=== PATIENT | male | born 1985 | race Caucasian/White ===

== ENCOUNTER 2016-12-17 12:59 | Inpatient (IN) | payer OTHER ==
[2016-12-17 15:25] VITALS: BMI 39.6
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
[2016-12-17] MEDS ORDERED: MAGNESIUM HYDROX 2400MG/30ML ORAL SUSPENSION 30 ML CUP PO PRN (16:53)
[2016-12-17] MEDS ORDERED: ACETAMINOPHEN 325 MG TABLET (FP) PO PRN (16:53)
[2016-12-17] MEDS ORDERED: MAG HYDROX/AL HYDROX/SIMETH 30 ML UNIT-DOSE CUP PO PRN (16:53)
[2016-12-17] MEDS ORDERED: IBUPROFEN 400 MG TABLET (FP) PO PRN (16:53)
[2016-12-17] MEDS ORDERED: P-EPHED 60MG/TRIPROLIDI 2.5MG TABLET PO PRN (16:53)
[2016-12-17] MEDS ORDERED: MAGNESIUM CITRATE 300 ML BOTTLE PO PRN (16:53)
[2016-12-17] MEDS ORDERED: LOPERAMIDE HCL 2 MG CAPSULE PO PRN (16:53)
[2016-12-17] MEDS ORDERED: MENTHOL/PHENOL 1 EACH UD MM PRN (16:53)
[2016-12-17] MEDS ORDERED: NICOTINE POLACRILEX 2 MG GUM BUC PRN (16:53)
[2016-12-17] MEDS ORDERED: guaiFENesin/D-METHORPHAN HB 10 ML UNIT-DOSE CUPS PO PRN (16:53)
[2016-12-17] MEDS ORDERED: METHADONE HCL 10 MG TABLET (FOR DETOX USE ONLY) PO ONE ×2 (18:00→23:00)
[2016-12-17] MEDS: diazePAM 5 MG TABLET PO PRN ×2 (18:06→22:05)
[2016-12-17 21:49] LABS: URINE APPEARANCE CLEAR; URINE BILIRUBIN NEGATIVE (NEGATIVE); URINE BLOOD NEGATIVE (NEGATIVE); URINE COLOR STRAW; URINE GLUCOSE (UA) NEGATIVE (NEGATIVE); URINE KETONE NEGATIVE (NEGATIVE); URINE LEUK ESTERASE NEGATIVE (NEGATIVE); URINE NITRITE NEGATIVE (NEGATIVE); URINE PROTEIN NEGATIVE (NEGATIVE); URINE UROBILINOGEN NEGATIVE E.U./dl (0.2-1.0)
[2016-12-17] MEDS: CYCLOBENZAPRINE HCL 10 MG TABLET (FP) PO PRN (22:04)
[2016-12-17] MEDS: diphenhydrAMINE HCL 50 MG CAPSULE PO PRN (22:04)
[2016-12-17] MEDS: cloNIDine HCL 0.1 MG TABLET PO PRN (22:04)
[2016-12-17] MEDS: THIAMINE HCL 100 MG TABLET (FP) PO SCH (22:04)
[2016-12-17] MEDS: RANITIDINE HCL 150 MG TABLET (FP) PO SCH (22:46)
[2016-12-18] MEDS: diazePAM 5 MG TABLET PO PRN ×4 (08:29→22:03)
[2016-12-18 09:35] LABS: MCH 28.3 pg (25.7-33.7); MEAN CELL VOLUME 85.6 fl (80-96); MEAN PLT VOLUME 7.9 fl (7.5-11.1); PLATELET COUNT 314 K/MM3 (134-434); RDW 14.2 % (11.9-15.9); WHITE BLOOD COUNT 13.8 K/mm3 (4.0-10.0)
[2016-12-18 09:56] LABS: ALBUMIN 3.6 g/dl (3.4-5.0); ALK PHOS 70 U/L (45-117); ANION GAP 8 (8-16); BILIRUBIN,TOTAL 0.7 mg/dL (0.2-1.0); CALCIUM 9.2 mg/dL (8.5-10.1); CO2 29 mmol/L (21-32); CREATININE 0.8 mg/dL (0.7-1.3); GLUCOSE,RANDOM 94 mg/dL (74-106); SGOT/AST 15 U/L (15-37); SGPT/ALT 34 U/L (12-78); TOT PROT 7.2 g/dl (6.4-8.2)
[2016-12-18] MEDS ORDERED: METHADONE HCL 10 MG TABLET (FOR DETOX USE ONLY) PO ONE (10:00)
--- NOTE | 2016-12-18 10:38 | EKG ---
Test Reason : Blood Pressure : / mmHG Vent. Rate : 089 BPM Atrial Rate : 089 BPM P-R Int : 176 ms QRS Dur : 098 ms QT Int : 356 ms P-R-T Axes : 067 038 019 degrees QTc Int : 433 ms NORMAL SINUS RHYTHM POSSIBLE LEFT ATRIAL ENLARGEMENT BORDERLINE ECG NO PREVIOUS ECGS AVAILABLE Confirmed by PITA LOPEZ, KELLEY ([id number]) on 12/18/2016 10:37:59 AM Referred By: Confirmed By:KELLEY LEMA MD
[2016-12-18] MEDS: RANITIDINE HCL 150 MG TABLET (FP) PO SCH ×2 (10:55→22:03)
[2016-12-18] MEDS: CYCLOBENZAPRINE HCL 10 MG TABLET (FP) PO PRN ×2 (10:55→22:03)
[2016-12-18] MEDS: cloNIDine HCL 0.1 MG TABLET PO PRN (10:55)
[2016-12-18] MEDS: PRENATAL VITAMINS W/ FOLIC ACID TABLET (FP) PO SCH (10:55)
[2016-12-18] MEDS: NICOTINE 21 MG/24 HOURS TOPICAL PATCH TD SCH (13:04)
--- NOTE | 2016-12-18 13:08 | PN ---
S COWS - Scale Resting Pulse: 1= SC 81-100 Sweatin=Flushed/Facial Moisture Restless Observation: 1= Difficult to Sit Still Pupil Size: 0= Normal to Room Light Bone or Joint Aches: 2= Severe Diffuse Aches Runny Nose/ Eye Tearin= Runny Nose/Eyes GI Upset > 30mins: 1= Stomach Cramp Tremor Observation of Outstretched Hands: 2= Slight Tremor Visible Yawning Observation: 2= >3x During Session Anxiety or Irritability: 2=Irritable/Anxious Goose Flesh Skin: 3=Piloerection COWS Score: 18 S Progress Note (SOAP) Subjective: agitation anxiety sweats shakes interrupted sleep body aches Objective: 12/18/16 13:07 Vital Signs Temperature 98.1 F 12/18/16 10:08 Pulse Rate 82 12/18/16 10:08 Respiratory Rate 18 12/18/16 10:08 Blood Pressure 149/107 12/18/16 10:08 O2 Sat by Pulse Oximetry (%) Laboratory Tests 12/17/16 12/18/16 12/18/16 20:30 06:30 06:30 WBC 13.8 H RBC 4.87 Hgb 13.8 Hct 41.7 MCV 85.6 MCHC 33.0 RDW 14.2 Plt Count 314 MPV 7.9 Sodium 140 Potassium 4.1 Chloride 103 Carbon Dioxide 29 Anion Gap 8 BUN 16 Creatinine 0.8 Creat Clearance w eGFR > 60 Random Glucose 94 Calcium 9.2 Total Bilirubin 0.7 AST 15 ALT 34 Alkaline Phosphatase 70 Total Protein 7.2 Albumin 3.6 Urine Color Straw Urine Appearance Clear Urine pH 6.0 Ur Specific [place] 1.008 Urine Protein Negative Urine Glucose (UA) Negative Urine Ketones Negative Urine Blood Negative Urine Nitrite Negative Urine Bilirubin Negative Urine Urobilinogen Negative Ur Leukocyte Esterase Negative awake/alert ambulating no acute distress Assessment: 12/18/16 13:07 withdrawal sx Plan: continue detox increase fluids clonidine 0.1mg bid ordered
[2016-12-18] MEDS: cloNIDine HCL 0.1 MG TABLET PO SCH (22:03)
[2016-12-18] MEDS: THIAMINE HCL 100 MG TABLET (FP) PO SCH (22:03)
[2016-12-18] MEDS: diphenhydrAMINE HCL 50 MG CAPSULE PO PRN (22:03)
[2016-12-19] MEDS: diazePAM 5 MG TABLET PO PRN ×5 (06:23→23:33)
[2016-12-19] MEDS ORDERED: METHADONE HCL 5 MG TABLET (FOR DETOX USE ONLY) PO ONE (10:00)
[2016-12-19] MEDS: NICOTINE 21 MG/24 HOURS TOPICAL PATCH TD SCH (10:12)
[2016-12-19] MEDS: RANITIDINE HCL 150 MG TABLET (FP) PO SCH ×2 (10:13→22:12)
[2016-12-19] MEDS: cloNIDine HCL 0.1 MG TABLET PO SCH ×2 (10:13→23:33)
[2016-12-19] MEDS: PRENATAL VITAMINS W/ FOLIC ACID TABLET (FP) PO SCH (10:13)
[2016-12-19] MEDS: CYCLOBENZAPRINE HCL 10 MG TABLET (FP) PO PRN ×2 (10:13→23:33)
--- NOTE | 2016-12-19 11:25 | PN ---
S COWS - Scale Resting Pulse: 1= [place] 81-100 Sweatin=Flushed/Facial Moisture Restless Observation: 3= Extraneous Movement Pupil Size: 1= Pupils >than Normal Bone or Joint Aches: 2= Severe Diffuse Aches Runny Nose/ Eye Tearin= Runny Nose/Eyes GI Upset > 30mins: 2= Nausea/Diarrhea Tremor Observation of Outstretched Hands: 2= Slight Tremor Visible Yawning Observation: 2= >3x During Session Anxiety or Irritability: 2=Irritable/Anxious Goose Flesh Skin: 0=Smooth Skin COWS Score: 19 S Progress Note (SOAP) Subjective: ALERT,IRRITABLE,ANXIOUS,INTERRUPTED SLEEP,PAIN IN THE BODY AND BACK,TREMOR Objective: 12/19/16 11:23 Vital Signs Temperature 97.9 F 12/19/16 10:28 Pulse Rate 93 H 12/19/16 10:28 Respiratory Rate 20 12/19/16 10:28 Blood Pressure 132/92 12/19/16 10:28 O2 Sat by Pulse Oximetry (%) EKG NSR Laboratory Last Values WBC 13.8 K/mm3 (4.0-10.0) H 12/18/16 06:30 RBC 4.87 M/mm3 (4.00-5.60) 12/18/16 06:30 Hgb 13.8 GM/dL (11.7-16.9) 12/18/16 06:30 Hct 41.7 % (35.4-49) 12/18/16 06:30 MCV 85.6 fl (80-96) 12/18/16 06:30 MCHC 33.0 g/dl (32.0-35.9) 12/18/16 06:30 RDW 14.2 % (11.9-15.9) 12/18/16 06:30 Plt Count 314 K/MM3 (134-434) 12/18/16 06:30 MPV 7.9 fl (7.5-11.1) 12/18/16 06:30 Sodium 140 mmol/L (136-145) 12/18/16 06:30 Potassium 4.1 mmol/L (3.5-5.1) 12/18/16 06:30 Chloride 103 mmol/L (98-107) 12/18/16 06:30 Carbon Dioxide 29 mmol/L (21-32) 12/18/16 06:30 Anion Gap 8 (8-16) 12/18/16 06:30 BUN 16 mg/dL (7-18) 12/18/16 06:30 Creatinine 0.8 mg/dL (0.7-1.3) 12/18/16 06:30 Creat Clearance w eGFR > 60 (>60) 12/18/16 06:30 Random Glucose 94 mg/dL (74-106) 12/18/16 06:30 Calcium 9.2 mg/dL (8.5-10.1) 12/18/16 06:30 Total Bilirubin 0.7 mg/dL (0.2-1.0) 12/18/16 06:30 AST 15 U/L (15-37) 12/18/16 06:30 ALT 34 U/L (12-78) 12/18/16 06:30 Alkaline Phosphatase 70 U/L (45-117) 12/18/16 06:30 Total Protein 7.2 g/dl (6.4-8.2) 12/18/16 06:30 Albumin 3.6 g/dl (3.4-5.0) 12/18/16 06:30 Urine Color Straw 12/17/16 20:30 Urine Appearance Clear 12/17/16 20:30 Urine pH 6.0 (5.0-8.0) 12/17/16 20:30 Ur Specific [place] 1.008 (1.001-1.035) 12/17/16 20:30 Urine Protein Negative (NEGATIVE) 12/17/16 20:30 Urine Glucose (UA) Negative (NEGATIVE) 12/17/16 20:30 Urine Ketones Negative (NEGATIVE) 12/17/16 20:30 Urine Blood Negative (NEGATIVE) 12/17/16 20:30 Urine Nitrite Negative (NEGATIVE) 12/17/16 20:30 Urine Bilirubin Negative (NEGATIVE) 12/17/16 20:30 Urine Urobilinogen Negative E.U./dl (0.2-1.0) 12/17/16 20:30 Ur Leukocyte Esterase Negative (NEGATIVE) 12/17/16 20:30 RPR Titer Nonreactive (NONREACTIVE) 12/18/16 06:30 LABS PENDING Assessment: 12/19/16 11:24 WITHDRAWAL SYMPTOM Plan: CONTINUE DETOX,ENCOURAGE ORAL FLUID,REPEAT CBC IN AM
[2016-12-19] MEDS ORDERED: PNEUMOCOCCAL 23 VACCINE 0.5 ML VIAL IM ONE (12:00)
[2016-12-19] MEDS ORDERED: PNEUMOC 13-VAL CONJ-DIP CRM/PF 0.5 ML DISP.SYRIN IM ONE (12:00)
[2016-12-19] MEDS: THIAMINE HCL 100 MG TABLET (FP) PO SCH (22:12)
[2016-12-19] MEDS: diphenhydrAMINE HCL 50 MG CAPSULE PO PRN (23:39)
[2016-12-20] MEDS: diazePAM 5 MG TABLET PO PRN ×2 (08:35→14:39)
[2016-12-20] MEDS ORDERED: METHADONE HCL 5 MG TABLET (FOR DETOX USE ONLY) PO ONE (10:00)
--- NOTE | 2016-12-20 10:37 | PN ---
S Progress Note (SOAP) Subjective: ALERT,IRRITABLE,ANXIOUS,INTERRUPTED SLEEP,TREMOR Objective: 12/20/16 10:36 Vital Signs Temperature 97.9 F 12/20/16 09:38 Pulse Rate 117 H 12/20/16 09:38 Respiratory Rate 20 12/20/16 09:38 Blood Pressure 139/79 12/20/16 09:38 O2 Sat by Pulse Oximetry (%) Assessment: 12/20/16 10:36 WITHDRAWAL SYMPTOM Plan: CONTINUE DETOX
[2016-12-20] MEDS: RANITIDINE HCL 150 MG TABLET (FP) PO SCH ×2 (10:42→22:33)
[2016-12-20] MEDS: cloNIDine HCL 0.1 MG TABLET PO SCH ×2 (10:42→22:33)
[2016-12-20] MEDS: NICOTINE 21 MG/24 HOURS TOPICAL PATCH TD SCH (10:42)
[2016-12-20] MEDS: PRENATAL VITAMINS W/ FOLIC ACID TABLET (FP) PO SCH (10:42)
[2016-12-20 11:12] LABS: MCH 28.5 pg (25.7-33.7); MCHC 33.4 g/dl (32.0-35.9); MEAN CELL VOLUME 85.3 fl (80-96); MEAN PLT VOLUME 7.6 fl (7.5-11.1); PLATELET COUNT 314 K/MM3 (134-434); RDW 13.6 % (11.9-15.9); WHITE BLOOD COUNT 15.3 K/mm3 (4.0-10.0)
[2016-12-20] MEDS: THIAMINE HCL 100 MG TABLET (FP) PO SCH (23:36)
[2016-12-20] MEDS: CYCLOBENZAPRINE HCL 10 MG TABLET (FP) PO PRN (23:50)
[2016-12-20] MEDS: diphenhydrAMINE HCL 50 MG CAPSULE PO PRN (23:51)
[2016-12-21] MEDS ORDERED: METHADONE HCL 10 MG TABLET (FOR DETOX USE ONLY) PO ONE (10:00)
[2016-12-21] MEDS: cloNIDine HCL 0.1 MG TABLET PO SCH ×2 (10:44→23:30)
[2016-12-21] MEDS: NICOTINE 21 MG/24 HOURS TOPICAL PATCH TD SCH (10:44)
[2016-12-21] MEDS: RANITIDINE HCL 150 MG TABLET (FP) PO SCH ×2 (10:44→23:30)
[2016-12-21] MEDS: PRENATAL VITAMINS W/ FOLIC ACID TABLET (FP) PO SCH (10:44)
--- NOTE | 2016-12-21 13:16 | PN ---
[facility] Progress Note (SOAP) Subjective: sweating,interrupted sleep,restless Objective: 12/21/16 13:16 Vital Signs - 8 hr 12/21/16 12/21/16 06:00 10:00 Temperature 97.9 F 97.0 F L Pulse Rate 73 100 H Respiratory 20 18 Rate Blood Pressure 112/65 114/84 Laboratory Last Values WBC 15.3 K/mm3 (4.0-10.0) H 12/20/16 07:50 RBC 5.10 M/mm3 (4.00-5.60) 12/20/16 07:50 Hgb 14.6 GM/dL (11.7-16.9) 12/20/16 07:50 Hct 43.5 % (35.4-49) 12/20/16 07:50 MCV 85.3 fl (80-96) 12/20/16 07:50 MCHC 33.4 g/dl (32.0-35.9) 12/20/16 07:50 RDW 13.6 % (11.9-15.9) 12/20/16 07:50 Plt Count 314 K/MM3 (134-434) 12/20/16 07:50 MPV 7.6 fl (7.5-11.1) 12/20/16 07:50 Sodium 140 mmol/L (136-145) 12/18/16 06:30 Potassium 4.1 mmol/L (3.5-5.1) 12/18/16 06:30 Chloride 103 mmol/L (98-107) 12/18/16 06:30 Carbon Dioxide 29 mmol/L (21-32) 12/18/16 06:30 Anion Gap 8 (8-16) 12/18/16 06:30 BUN 16 mg/dL (7-18) 12/18/16 06:30 Creatinine 0.8 mg/dL (0.7-1.3) 12/18/16 06:30 Creat Clearance w eGFR > 60 (>60) 12/18/16 06:30 Random Glucose 94 mg/dL (74-106) 12/18/16 06:30 Calcium 9.2 mg/dL (8.5-10.1) 12/18/16 06:30 Total Bilirubin 0.7 mg/dL (0.2-1.0) 12/18/16 06:30 AST 15 U/L (15-37) 12/18/16 06:30 ALT 34 U/L (12-78) 12/18/16 06:30 Alkaline Phosphatase 70 U/L (45-117) 12/18/16 06:30 Total Protein 7.2 g/dl (6.4-8.2) 12/18/16 06:30 Albumin 3.6 g/dl (3.4-5.0) 12/18/16 06:30 Urine Color Straw 12/17/16 20:30 Urine Appearance Clear 12/17/16 20:30 Urine pH 6.0 (5.0-8.0) 12/17/16 20:30 Ur Specific [place] 1.008 (1.001-1.035) 12/17/16 20:30 Urine Protein Negative (NEGATIVE) 12/17/16 20:30 Urine Glucose (UA) Negative (NEGATIVE) 12/17/16 20:30 Urine Ketones Negative (NEGATIVE) 12/17/16 20:30 Urine Blood Negative (NEGATIVE) 12/17/16 20:30 Urine Nitrite Negative (NEGATIVE) 12/17/16 20:30 Urine Bilirubin Negative (NEGATIVE) 12/17/16 20:30 Urine Urobilinogen Negative E.U./dl (0.2-1.0) 12/17/16 20:30 Ur Leukocyte Esterase Negative (NEGATIVE) 12/17/16 20:30 RPR Titer Nonreactive (NONREACTIVE) 12/18/16 06:30 labs noted Assessment: 12/21/16 13:16 withdrawal sx. Plan: continue detox
[2016-12-21] MEDS: diphenhydrAMINE HCL 50 MG CAPSULE PO PRN (23:30)
[2016-12-21] MEDS: CYCLOBENZAPRINE HCL 10 MG TABLET (FP) PO PRN (23:32)
[2016-12-21] MEDS: THIAMINE HCL 100 MG TABLET (FP) PO SCH (23:34)
[2016-12-22 05:49] VITALS: BP 131/65; PULSE 61; TEMP 98.2
[2016-12-22] MEDS ORDERED: METHADONE HCL 5 MG TABLET (FOR DETOX USE ONLY) PO ONE (06:00)
--- NOTE | 2016-12-22 09:34 | DS ---
[facility] Detox Discharge Summary Admission Date: 12/17/16 Discharge Date: 12/22/16 - History Present History: Alcohol Dependence, Opioid Dependence Additional Comments: elevated wbc# w/o fever , adenopathy , no sob or cough - Physical Exam Results Vital Signs: Vital Signs Temperature 98.2 F 12/22/16 05:49 Pulse Rate 61 12/22/16 05:49 Respiratory Rate 16 12/22/16 05:49 Blood Pressure 131/65 12/22/16 05:49 O2 Sat by Pulse Oximetry (%) - Treatment Hospital Course: Detox Protocol Followed, Detoxed Safely, Responded well, Discharged Condition Good - Medication Discharge Medications: Ambulatory Orders NK [No Known Home Medication] 12/17/16 - Diagnosis (1) Leucocytosis Current Visit: Yes Status: Acute - AMA Did Patient Leave Against Medical Advice: No (pt given copy of labs -sates he will f/up with PMD. )
== END 2016-12-22 09:55 | disposition home or self-care (01) | DRG 773 ==
LOC: YASAS 12:59 → Y6N 17:36
PROVIDERS: ADMIT Internal Medicine; ATTEND Internal Medicine
PROC: HZ2ZZZZ Detoxification Services for Substance Abuse Treatment (ICD-10-PCS; principal; 2016-12-22)
DX: F11.23 Opioid dependence with withdrawal (principal); F17.213 Nicotine dependence, cigarettes, with withdrawal
CPT/HCPCS: 36415; 80053; 81003; 85027; 86593; 93005; 93010